=== PATIENT | female | born 1935 ===

== ENCOUNTER 2016-12-24 08:34 | Observation (INO) | payer OTHER ==
[2016-12-24 08:38] VITALS: BMI 25.5
--- NOTE | 2016-12-24 09:18 | ED PDOC ---
Syncope/Near Syncope/Dizziness Time Seen by Provider: 12/24/16 09:11 Chief Complaint (Nursing): Dizziness/Lightheaded History Per: Patient Onset/Duration Of Symptoms: Days (3) Current Symptoms Are (Timing): Still Present Activity At Onset Of Symptoms: Change In Head Position Associated Symptoms Preceding Syncopal Episode: Vertigo, Vertigo Worse With Change In Head Position Seizure Or Post-ictal Symptoms: None Possible Causative Factor(s): Vertigo Fall Associated With With Symptoms: No Severity: Mild Pain Scale Rating Of: 0 Additional Complaint(s): Dizziness x 3 days. Worse when moving head. Denies chest pain, palpitations or headache. No LOC. No focal weakness or parsthesias. Past Medical History Vital Signs: Last Vital Signs Temp 98.5 F 12/24/16 08:37 Pulse 60 12/24/16 08:37 Resp 18 12/24/16 08:37 BP 142/77 12/24/16 08:37 Pulse Ox 99 12/24/16 08:37 - Medical History PMH: Diabetes, HTN, Hypercholesterolemia - Family History Family History: States: Unknown Family Hx - Allergies Allergies/Adverse Reactions: Allergies Allergy/AdvReac Type Severity Reaction Status Date / Time No Known Allergies Allergy Verified 12/24/16 08:51 Review of Systems ROS Statement: Except As Marked, All Systems Reviewed And Found Negative Cardiovascular: Negative for: Chest Pain, Palpitations Neurological: Positive for: Dizziness. Negative for: Headache Physical Exam - Reviewed Nursing Documentation Reviewed: Yes Vital Signs Reviewed: Yes - Physical Exam Appears: Positive for: Non-toxic, No Acute Distress Head Exam: Positive for: ATRAUMATIC, NORMAL INSPECTION, NORMOCEPHALIC Skin: Positive for: Normal Color, Warm, DRY Eye Exam: Positive for: EOMI, Normal appearance, PERRL ENT: Positive for: Normal ENT Inspection Neck: Positive for: Normal, Painless ROM Cardiovascular/Chest: Positive for: Regular Rate, Rhythm Respiratory: Positive for: CNT, Normal Breath Sounds Gastrointestinal/Abdominal: Positive for: Normal Exam, Bowel Sounds, Soft Back: Positive for: Normal Inspection Extremity: Positive for: Normal ROM Neurologic/Psych: Positive for: Alert, Oriented - Laboratory Results Result Diagrams: 12/24/16 09:40 12/24/16 09:40 - ECG O2 Sat by Pulse Oximetry: 99 Disposition - Clinical Impression Clinical Impression: Near syncope - Patient ED Disposition Is Patient to be Admitted: Yes - Disposition Disposition Time: 13:37 Condition: FAIR - Pt Status Changed To: Hospital Disposition Of: Observation - POA Present On Arrival: None
[2016-12-24 09:50] LABS: BASO # 0.1 K/uL (0.0-0.2); EOS # 0.1 K/uL (0.0-0.7); EOS % 2.2 % (0.0-4.0); HEMOGLOBIN 12.6 g/dL (12.0-16.0); LYMPH # 1.8 K/uL (1.0-4.3); MEAN CELL VOLUME 95.2 fl (81.0-99.0); MEAN CORPUSCULAR HEMOGLOBIN 31.2 pg (27.0-31.0); MEAN CORPUSCULAR HGB CONC 32.8 g/dL (33.0-37.0); MEAN PLATELET VOLUME 9.8 fl (7.2-11.7); MONO # 0.4 K/uL (0.0-0.8); MONO % 6.7 % (0.0-10.0); NEUT # 3.8 K/uL (1.8-7.0); NEUT % 61.1 % (50.0-75.0); RBC 4.03 Mil/uL (3.80-5.20); RED CELL DISTRIBUTION WIDTH 13.3 % (11.5-14.5); WHITE BLOOD COUNT 6.2 K/uL (4.8-10.8)
[2016-12-24 10:18] LABS: ALB/GLOB RATIO 1.3 (1.0-2.1); ALBUMIN 4.1 g/dL (3.5-5.0); ALT/SGPT 27 U/L (9-52); AST/SGOT 27 U/L (14-36); BLOOD UREA NITROGEN 19 mg/dl (7-17); CALCIUM 9.7 mg/dL (8.4-10.2); GFR AFRICAN-AMERICAN > 60; GFR NON-AFRICAN AMERICAN > 60
--- NOTE | 2016-12-24 11:25 | CARD ---
APPROVED REPORT EKG Measurement Heart [id number] <Conclusion> Sinus bradycardia with marked sinus arrhythmia Otherwise normal ECG
--- NOTE | 2016-12-24 12:49 | CT ---
PROCEDURE: CT HEAD WITHOUT CONTRAST. HISTORY: r/o bleed COMPARISON: 12/22/2013. TECHNIQUE: Axial computed tomography images were obtained through the head/brain without intravenous contrast. Radiation dose: Total exam DLP = 791.88 mGy-cm. This CT exam was performed using one or more of the following dose reduction techniques: Automated exposure control, adjustment of the mA and/or kV according to patient size, and/or use of iterative reconstruction technique. FINDINGS: HEMORRHAGE: No intracranial hemorrhage. BRAIN: Exit there is an old infarction in the left very frontal white matter. There is cystic encephalomalacia in the left high parietal lobe. There is no mass, mass effect or abnormal extra-axial fluid collection. VENTRICLES: There is mild age-related global parenchymal volume loss and proportionate enlargement of the ventricles and cortical sulci. CALVARIUM: The skull base and calvarium are normal. PARANASAL SINUSES: Predominantly clear. MASTOID AIR CELLS: Predominantly clear. OTHER FINDINGS: None. IMPRESSION: No acute intracranial abnormality. 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 Cystic encephalomalacia in the left high parietal lobe.
--- NOTE | 2016-12-24 15:23 | CP.PCM.HP ---
History of Present Illness - History of Present Illness History of Present Illness: Patient seen and examined with attending. 81F with onset of intermittent "dizziness" characterized by "the room spinning" for 3 days. Worse in the evening, associated with reading/writing, occurs when lying flat in bed, but denies presence when changing position from sitting to standing or while walking. In addition, no association with focal deficits, nausea, SOB, diaphoresis, diarrhea, urinary symptoms, recent illness, change in medications, recent antibiotic use. She does report sensation of ear being plugged for 2 yrs PMD: Dr Hermelindo Voss PMH: CVA, HTN, HLD, DM PSH: Lt CEA, Appendectomy ALL: NKDA [place]: See Med Rec Present on Admission - Present on Admission Any Indicators Present on Admission: No Review of Systems - Review of Systems All systems: reviewed and no additional remarkable complaints except - EENT Eyes: Diplopia Ears: Decreased Hearing (LEFT, chronic x2yrs), Dizziness - Cardiovascular Cardiovascular: absent: Chest Pain, Leg Edema, Palpitations - Respiratory Respiratory: absent: Dyspnea Past Patient History - Infectious Disease Hx of Infectious Diseases: None - Past Social History Smoking Status: Unknown If Ever Smoked - CARDIAC Hx Cardiac Disorders: Yes (HTN) - NEUROLOGICAL Hx Dizziness: Yes - ENDOCRINE/METABOLIC Hx Diabetes Mellitus Type 2: Yes - PSYCHIATRIC Hx Substance Use: No Meds Allergies/Adverse Reactions: Allergies Allergy/AdvReac Type Severity Reaction Status Date / Time No Known Allergies Allergy Verified 12/24/16 08:51 Physical Exam - Constitutional Appears: Well, Non-toxic, No Acute Distress - Head Exam Head Exam: ATRAUMATIC, NORMAL INSPECTION - Eye Exam Eye Exam: EOMI, PERRL. absent: Nystagmus - ENT Exam ENT Exam: Mucous Membranes Moist, Normal Exam - Cardiovascular Exam Cardiovascular Exam: Bradycardia. absent: JVD - GI/Abdominal Exam GI & Abdominal Exam: Normal Bowel Sounds, Soft. absent: Tenderness - Extremities Exam Extremities exam: Positive for: full ROM. Negative for: pedal edema, tenderness - Neurological Exam Neurological exam: Alert, CN II-XII Intact, Oriented x3 - Psychiatric Exam Psychiatric exam: Normal Affect, Normal Mood - Skin Skin Exam: Normal Color, Warm Results - Vital Signs Recent Vital Signs: Last Vital Signs Temp 36.5 C 12/24/16 14:46 Pulse 51 L 12/24/16 14:46 Resp 20 12/24/16 14:46 BP 177/60 H 12/24/16 14:46 Pulse Ox 100 12/24/16 14:46 - Labs Result Diagrams: 12/24/16 09:40 12/24/16 09:40 Assessment & Plan (1) Dizzinesses Assessment and Plan: Symptoms most c/w vertigo, orthostatics positive with a change SBP from sitting to standing of 20mmHg, however found to be bradycardic with sinus arrhythmia as well. She is not on a beta-joana, but mild elevation in BUN c/w possible volume depletion. Arrhythmia vs. volume depletion vs. less likely neurological in origin. CT head no ICH, old LEFT frontal infarct, cystic encephalomalacia LEFT parietal. - Admit to Telemetry - Cardiac Consult (Dr Sotelo) - Echo, Carotid Duplex - Meclizine Status: Acute (2) DVT prophylaxis Assessment and Plan: Lovenox 40mg, SC, Daily Status: Acute (3) Diabetes Assessment and Plan: Stable. - c/w medications - Accu-check - Mod CHO - Hypoglycemic Bundle Status: Chronic (4) Hypertension Assessment and Plan: Stable, c/w medications Status: Chronic (5) Hyperlipidemia Assessment and Plan: Stable, c/w medications Status: Chronic
[2016-12-24] MEDS ORDERED: Dextrose 50% SYRINGE Inj (50 ml) IV PRN (15:42)
[2016-12-24] MEDS ORDERED: Glucagon Recombinant 1 mg Inj IM PRN (15:42)
[2016-12-24] MEDS: Pantoprazole 40 mg EC Tab PO SCH (15:45)
[2016-12-24] MEDS: Enoxaparin 40 mg Syringe SC SCH (15:45)
--- NOTE | 2016-12-24 17:33 | US ---
PROCEDURE: Carotid vertebral duplex sonography HISTORY: dizziness COMPARISON: None available. TECHNIQUE: Grayscale, color Doppler and spectral Doppler assessment of the carotid system bilaterally. This includes common carotid, internal carotid arteries Vertebral artery assessment with respect to direction of flow (antegrade or retrograde) FINDINGS: RIGHT carotid system: Assessment of plaque: Heterogeneous plaque formation. Peak systolic ICA velocity: 74 cm/sec End-diastolic velocity: 21 cm/sec ICA/CCA ratio: 1.1 Vertebral artery flow: Antegrade LEFT carotid system: Assessment of plaque: Heterogeneous plaque formation. Peak systolic ICA velocity: 122.1 cm/sec End-diastolic velocity: 28 cm/sec ICA/CCA ratio: 1.5 Vertebral artery flow: Antegrade IMPRESSION: Right ICA degree of stenosis: Less than 50% Left ICA degree of stenosis: Less than 50% Reference Internal Carotid Artery (ICA) Peak Systolic Velocity (PSV) for above: 1. Less than 50% stenosis less than 125 cm/s peak systolic velocity 2. 50-69% stenosis 125-230cm/s peak systolic velocity 3. Greater than 70% but less than near occlusion greater than 230 cm/s peak systolic velocity
--- NOTE | 2016-12-24 20:44 | CP.PCM.CON ---
History of Present Illness - History of Present Illness History of Present Illness: I was asked to see patient by Dr. Shah. Patient is a 81 year old female with PMH HTN, hypercholesterolemia who presents with dizziness. The patient had a sensation of head spinning and "floating". Symptoms have been intermittentby became worse the day of admission. The patient has felt a fullness in her ears and associated headache, She denies chest pain or palpitations. Review of Systems - Constitutional Constitutional: absent: As Per HPI, Anorexia, Chills, Daytime Sleepiness, Excessive Sweating, Fatigue, Fever, Frequent Falls, Headache, Increased Appetite , Lethargy, Malaise, Night Sweats, Snoring, Sleep Apnea, Weight Gain, Weight Loss, Weakness, Other - EENT Eyes: absent: As Per HPI, Blind Spots, Blurred Vision, Change in Vision, Decreased Night Vision, Diplopia, Discharge, Dry Eye, Exophthalmos, Floaters, Irritation, Itchy Eyes, Loss of Peripheral Vision, Pain, Photophobia, Requires Corrective Lenses, Sees Flashes, Spots in Vision, Tunnel Vision, Other Visual Disturbances, Loss of Vision, Other Ears: absent: As Per HPI, Decreased Hearing, Ear Discharge, Ear Pain, Tinnitus, Abnormal Hearing, Disequilibrium, Dizziness, Other Nose/Mouth/Throat: absent: As Per HPI, Epistaxis, Nasal Congestion, Nasal Discharge, Nasal Obstruction, Nasal Trauma, Nose Pain, Post Nasal Drip, Sinus Pain, Sinus Pressure, Bleeding Gums, Change in Voice, Dental Pain, Dry Mouth, Dysphagia, Halitosis, Hoarsness, Lip Swelling, Mouth Lesions, Mouth Pain, Odynophagia, Sore Throat, Throat Swelling, Tongue Swelling, Facial Pain, Neck Pain, Neck Mass, Other - Breasts Breasts: absent: As Per HPI, Change in Shape, Mass, Pain, Nipple Discharge, Nipple Inversion, Skin Changes, Swelling, Other - Cardiovascular Cardiovascular: absent: As Per HPI, Acrocyanosis, Chest Pain, Chest Pain at Rest , Chest Pain with Activity, Claudication, Diaphoresis, Dyspnea, Dyspnea on Exertion, Edema, Irregular Heart Rhythm, Pain Radiating to Arm/Neck/Jaw, Leg Edema, Leg Ulcers, Lightheadedness, Orthopnea, Palpitations, Paroxysmal Nocturnal Dyspnea, Pedal Edema, Radiating Pain, Rapid Heart Rate, Slow Heart Rate, Syncope, Other - Respiratory Respiratory: absent: As Per HPI, Cough, Dyspnea, Hemoptysis, Dyspnea on Exertion , Wheezing, Snoring, Stridor, Pain on Inspiration, Chest Congestion, Excessive Mucous Production, Change in Mucous Color, Pain with Coughing, Other - Gastrointestinal Gastrointestinal: absent: As Per HPI, Abdominal Pain, Belching, Bloating, Change in Bowel Habits, Change in Stool Character, Coffee Ground Emesis, Constipation, Cramping, Diarrhea, Dyspepsia, Dysphagia, Early Satiety, Excessive Flatus, Fecal Incontinence, Heartburn, Hematemesis, Hematochezia, Loose Stools, Melena, Nausea, Odynophagia, Temesmus, Vomiting, Other - Genitourinary Genitourinary: absent: As Per HPI, Change in Urinary Stream, Difficulty Urinating, Dysuria, Flank Pain, Hematuria, Pyuria, Nocturia, Urinary Incontinence, Urinary Frequency, Urinary Hesitance, Urinary Urgency, Voiding Freq/Small Amts, Freq UTI, Hx Renal/Bladder Calculi, Hx /Renal Surgery, Bladder Distension, Other - Musculoskeletal Musculoskeletal: absent: As Per HPI, Abnormal Gait, Arthralgias, Atrophy, Back Pain, Deformity, Joint Swelling, Limited Range of Motion, Loss of Height, Muscle Cramps, Muscle Weakness, Myalgias, Neck Pain, Numbness, Radiating Pain into Limb, Stiffness, Tingling, Other - Integumentary Integumentary: absent: As Per HPI, Acne, Alopecia, Bleeding Lesions, Change in Hair, Change in Nails, Change in Pigmentation, Changing Lesions, Dry Skin, Erythema, Furuncle, Hirsutism, Lesions, New Lesions, Non-Healing Lesions, Photosensitivity, Pruritus, Rash, Skin Pain, Skin Ulcer, Sores, Striae, Swelling , Unusual Bruising, Wounds, Jaundice, Other - Neurological Neurological: Dizziness, Lack of Coordination - Psychiatric Psychiatric: absent: As Per HPI, Abnormal Sleep Pattern, Anhedonia, Anxiety, Auditory Hallucinations, Behavioral Changes, Change in Appetite, Change in Libido, Confusion, Depression, Difficulty Concentrating, Hallucinations, Homicidal Ideation, Hopelessness, Irritability, Memory Loss, Mood Swings, Panic Attacks, Paranoia, Suicidal Ideation, Visual Hallucinations, Tactile Hallucinations, Other - Endocrine Endocrine: absent: As Per HPI, Change in Body Appearance, Change in Libido, Cold Intolorance, Deepening of Voice, Excessive Sweating, Fatigue, Flushing, Heat Intolorance, Increase in Ring/Shoe/Hat Size, Palpitations, Polydipsia, Polyphagia, Polyuria, Other - Hematologic/Lymphatic Hematologic: absent: As Per HPI, Easy Bleeding, Easy Bruising, Lymphadenopathy, Other Past Patient History - Infectious Disease Hx of Infectious Diseases: None - Past Medical History & Family History Past Medical History?: Yes - Past Social History Smoking Status: Unknown If Ever Smoked - CARDIAC Hx Cardiac Disorders: Yes (HTN) - PULMONARY Hx Respiratory Disorders: No - NEUROLOGICAL Hx Dizziness: Yes - HEENT Hx HEENT Problems: No - ENDOCRINE/METABOLIC Hx Diabetes Mellitus Type 2: Yes - HEMATOLOGICAL/ONCOLOGICAL Hx Blood Disorders: No - INTEGUMENTARY Hx Dermatological Problems: No - MUSCULOSKELETAL/RHEUMATOLOGICAL Hx Falls: No - GASTROINTESTINAL Hx Gastrointestinal Disorders: No - GENITOURINARY/GYNECOLOGICAL Hx Genitourinary Disorders: No - PSYCHIATRIC Hx Substance Use: No - SURGICAL HISTORY Hx Appendectomy: Yes Other/Comment: left neck embolectomy and uterus cyst removal - ANESTHESIA Hx Anesthesia: Yes Hx Anesthesia Reactions: No Hx Malignant Hyperthermia: No Has any member of the family had a problem w/ anesthesia?: No Meds Allergies/Adverse Reactions: Allergies Allergy/AdvReac Type Severity Reaction Status Date / Time No Known Allergies Allergy Verified 12/24/16 08:51 - Medications Medications: Current Medications Aspirin (Aspirin Chewable) 81 mg PO DAILY [facility] Last Admin: 12/24/16 15:45 Dose: 81 mg Atorvastatin Calcium (Lipitor) 20 mg PO DAILY [facility] Last Admin: 12/24/16 15:45 Dose: 20 mg Dextrose (Dextrose 50% Inj) 0 ml IV STAT PRN; Protocol PRN Reason: Hyglycemia Protocol Dextrose (Glutose 15) 0 gm PO ONCE PRN; Protocol PRN Reason: Hypoglycemia Protocol Enoxaparin Sodium (Lovenox) 40 mg SC DAILY [facility] PRN Reason: Protocol Last Admin: 12/24/16 15:45 Dose: 40 mg Glucagon (Glucagen Diagnostic Kit) 0 mg IM STAT PRN; Protocol PRN Reason: Hypoglycemia Protocol Meclizine HCl (Antivert) 25 mg PO BID [facility] Last Admin: 12/24/16 16:38 Dose: 25 mg Metformin HCl (Glucophage) 500 mg PO BIDWM [facility] Last Admin: 12/24/16 16:40 Dose: 500 mg Pantoprazole Sodium (Protonix Ec Tab) 40 mg PO DAILY [facility] Last Admin: 12/24/16 15:45 Dose: 40 mg Prednisone (Prednisone Tab) 20 mg PO DAILY [facility] Valsartan (Diovan) 320 mg PO DAILY [facility] Last Admin: 12/24/16 15:45 Dose: 320 mg Physical Exam - Constitutional Appears: Non-toxic - Head Exam Head Exam: NORMAL INSPECTION - Eye Exam Eye Exam: Normal appearance - ENT Exam ENT Exam: Mucous Membranes Moist - Neck Exam Neck exam: Positive for: Full Rom - Respiratory Exam Respiratory Exam: NORMAL BREATHING PATTERN - Cardiovascular Exam Cardiovascular Exam: REGULAR RHYTHM - GI/Abdominal Exam GI & Abdominal Exam: Normal Bowel Sounds - Rectal Exam Rectal Exam: Deferred - Extremities Exam Extremities exam: Positive for: pedal edema - Back Exam Back exam: NORMAL INSPECTION - Neurological Exam Neurological exam: Alert, Oriented x3 - Psychiatric Exam Psychiatric exam: Normal Affect - Skin Skin Exam: Normal Color Results - Vital Signs Recent Vital Signs: Last Vital Signs Temp 98.3 F 12/24/16 19:39 Pulse 53 L 12/24/16 19:39 Resp 20 12/24/16 19:39 BP 151/75 H 12/24/16 19:39 Pulse Ox 98 12/24/16 19:39 - Labs Result Diagrams: 12/24/16 09:40 12/24/16 09:40 Labs: Laboratory Results - last 24 hr 12/24/16 12/24/16 16:06 17:00 POC Glucose (mg/dL) 98 TSH 3rd Generation 1.72 - EKG Data EKG Interpreted by: Myself EKG shows normal: Sinus rhythm Assessment & Plan (1) Near syncope Assessment and Plan: monitor on telemetry. EKG reveals evidence of sinus arrhythmia. Recommend echocardiogram. neuro eval. Status: Acute (2) Hyperlipidemia Assessment and Plan: statin therapy Status: Chronic (3) Hypertension Assessment and Plan: monitor blood pressure. Status: Chronic
[2016-12-25 05:10] VITALS: RESP 18
[2016-12-25 07:40] LABS: LDL CHOLESTEROL 75 mg/dL (0-129)
[2016-12-25 07:42] LABS: HDL CHOLESTEROL 66 MG/DL (30-70)
[2016-12-25 08:30] VITALS: TEMP 98.3
[2016-12-25] MEDS: Pantoprazole 40 mg EC Tab PO SCH (09:07)
[2016-12-25] MEDS: Enoxaparin 40 mg Syringe SC SCH (09:09)
--- NOTE | 2016-12-25 10:15 | CP.PCM.DIS ---
Provider - Provider Date of Admission: 12/24/16 13:37 Attending physician: Dheeraj Shah MD Time Spent in preparation of Discharge (in minutes): 45 Diagnosis - Discharge Diagnosis (1) Dizzinesses Status: Acute Comment: Cleared by cardiology for discharge, Neurology recommend outpatient follow-up. Most c/w vertigo. (2) Diabetes Status: Chronic Comment: c/w Home regimen (3) Hypertension Status: Chronic Comment: Controlled, c/w home medication. (4) Hyperlipidemia Status: Chronic Comment: Controlled, c/w home medication Hospital Course - Lab Results Lab Results: Most Recent Lab Values WBC 6.2 K/uL (4.8-10.8) 12/24/16 09:40 RBC 4.03 Mil/uL (3.80-5.20) 12/24/16 09:40 Hgb 12.6 g/dL (12.0-16.0) 12/24/16 09:40 Hct 38.4 % (34.0-47.0) 12/24/16 09:40 MCV 95.2 fl (81.0-99.0) 12/24/16 09:40 MCH 31.2 pg (27.0-31.0) H 12/24/16 09:40 MCHC 32.8 g/dL (33.0-37.0) L 12/24/16 09:40 RDW 13.3 % (11.5-14.5) 12/24/16 09:40 Plt Count 183 K/uL (130-400) 12/24/16 09:40 MPV 9.8 fl (7.2-11.7) 12/24/16 09:40 Neut % (Auto) 61.1 % (50.0-75.0) 12/24/16 09:40 Lymph % (Auto) 29.0 % (20.0-40.0) 12/24/16 09:40 Kidder % (Auto) 6.7 % (0.0-10.0) 12/24/16 09:40 Eos % (Auto) 2.2 % (0.0-4.0) 12/24/16 09:40 Baso % (Auto) 1.0 % (0.0-2.0) 12/24/16 09:40 Neut # 3.8 K/uL (1.8-7.0) 12/24/16 09:40 Lymph # 1.8 K/uL (1.0-4.3) 12/24/16 09:40 Kidder # 0.4 K/uL (0.0-0.8) 12/24/16 09:40 Eos # 0.1 K/uL (0.0-0.7) 12/24/16 09:40 Baso # 0.1 K/uL (0.0-0.2) 12/24/16 09:40 Sodium 142 mmol/l (132-148) 12/24/16 09:40 Potassium 4.2 MMOL/L (3.6-5.0) 12/24/16 09:40 Chloride 106 mmol/L (98-107) 12/24/16 09:40 Carbon Dioxide 25 mmol/L (22-30) 12/24/16 09:40 Anion Gap 15 (10-20) 12/24/16 09:40 BUN 19 mg/dl (7-17) H 12/24/16 09:40 Creatinine 0.9 mg/dL (0.7-1.2) 12/24/16 09:40 Est GFR ( Amer) > 60 12/24/16 09:40 Est GFR (Non-Af Amer) > 60 12/24/16 09:40 POC Glucose (mg/dL) 100 mg/dL (65-110) 12/25/16 05:40 Random Glucose 106 mg/dL (65-105) H 12/24/16 09:40 Hemoglobin A1c 6.9 % (4.2-6.5) H 12/24/16 17:23 Calcium 9.7 mg/dL (8.4-10.2) 12/24/16 09:40 Total Bilirubin 0.6 mg/dl (0.2-1.3) 12/24/16 09:40 AST 27 U/L (14-36) 12/24/16 09:40 ALT 27 U/L (9-52) 12/24/16 09:40 Alkaline Phosphatase 41 U/L (38-126) 12/24/16 09:40 Total Protein 7.3 G/DL (6.3-8.2) 12/24/16 09:40 Albumin 4.1 g/dL (3.5-5.0) 12/24/16 09:40 Globulin 3.2 gm/dL (2.2-3.9) 12/24/16 09:40 Albumin/Globulin Ratio 1.3 (1.0-2.1) 12/24/16 09:40 Triglycerides 71 mg/DL (0-149) 12/25/16 05:05 Cholesterol 175 mg/dL (0-199) 12/25/16 05:05 LDL Cholesterol Direct 75 mg/dL (0-129) 12/25/16 05:05 HDL Cholesterol 66 MG/DL (30-70) 12/25/16 05:05 TSH 3rd Generation 1.72 mIU/ML (0.46-4.68) 12/24/16 17:00 - Hospital Course Hospital Course: Patient seen and examined at bedside with attending. 81F admitted for near syncope, CT head negative and no focal deficits. Carotid duplex without acute disease. Cardiology agree for discharge to home and close follow up. Evaluation by cardiology and neurology. Patient is stable for discharge and close follow up with PMD. Carotid Duplex: b/l <50% stenosis Echocardiogram: Nml LV systolic function, MR, aortic sclerosis Discharge Exam - Head Exam Head Exam: ATRAUMATIC, NORMAL INSPECTION - Eye Exam Eye Exam: EOMI, PERRL - ENT Exam ENT Exam: Mucous Membranes Moist, Normal Exam - Respiratory Exam Respiratory Exam: Clear to PA & Lateral, NORMAL BREATHING PATTERN. absent: Rales, Rhonchi, Wheezes - Cardiovascular Exam Cardiovascular Exam: REGULAR RHYTHM. absent: JVD - GI/Abdominal Exam GI & Abdominal Exam: Normal Bowel Sounds, Soft. absent: Tenderness - Extremities Exam Extremities exam: normal capillary refill, pedal pulses present - Neurological Exam Neurological exam: Alert, Oriented x3 - Psychiatric Exam Psychiatric exam: Normal Affect, Normal Mood - Skin Skin Exam: Dry, Intact Discharge Plan - Follow Up Plan Condition: FAIR Disposition: HOME/ ROUTINE Patient education suggested?: Yes Instructions: Syncope (DC), Vertigo (DC) Referrals: Jaron Voss MD [Family Provider] - 1 Week
[2016-12-25 12:54] VITALS: BP 135/67; PULSE 65; O2SAT 97
--- NOTE | 2016-12-25 12:56 | CARD ---
APPROVED REPORT EXAM: Two-dimensional and M-mode echocardiogram with Doppler and color Doppler. Other Information Quality : GoodRhythm : NSR INDICATION CVA/TIA Hypertension/HCVD 2D DIMENSIONS IVSd1.17 (0.7-1.1cm)LVDd3.81 (3.9-5.9cm) LVOT Diameter1.82 (1.8-2.4cm)PWd0.72 (0.7-1.1cm) IVSs1.22 (0.8-1.2cm)LVDs2.32 (2.5-4.0cm) FS (%) 39.0 %PWs1.07 (0.8-1.2cm) M-Mode DIMENSIONS Left Atrium (MM)3.71 (2.5-4.0cm)IVSd0.88 (0.7-1.1cm) Aortic Root2.68 (2.2-3.7cm)LVDd5.35 (4.0-5.6cm) Aortic Cusp Exc.1.76 (1.5-2.0cm)PWd1.06 (0.7-1.1cm) IVSs1.21 cmFS (%) 51 % LVDs2.65 (2.0-3.8cm)PWs1.06 cm Mitral Valve MV E Wrcfloyv88.5cm/sMV DECEL [id number] A Hgxvjuir95.6cm/s MV [id number]/A ratio1.0MVA (PHT)3.10cm2 TDI Lateral E' Peak V7.99cm/sMedial E' Peak V6.60cm/sE/Lateral E'9.6 E/Medial E'11.6 Tricuspid Valve TR Peak Daepnixv750ri/sRAP [id number] Peak Gr.20mmHg [id number] LEFT VENTRICLE The left ventricle is normal size. There is normal left ventricular wall thickness. The left ventricular function is normal. The left ventricular ejection fraction is 60% There is normal LV segmental wall motion. The left ventricular diastolic function is normal. No left ventricle thrombus noted on this study. There is no ventricular septal defect visualized. There is no left ventricular aneurysm. RIGHT VENTRICLE The right ventricle is normal size. There is normal right ventricular wall thickness. The right ventricular systolic function is normal. ATRIA The left atrium size is normal. The right atrium size is normal. The interatrial septum is intact with no evidence for an atrial septal defect. AORTIC VALVE The aortic valve is mildly sclerotic. No aortic regurgitation is present. There is no aortic valvular stenosis. There is no aortic valvular vegetation. MITRAL VALVE The mitral valve is normal in structure and function. There is no evidence of mitral valve prolapse. There is no mitral valve stenosis. Mitral regurgitation is trace. TRICUSPID VALVE The tricuspid valve is normal in structure and function. There is no tricuspid valve regurgitation noted. There is no tricuspid valve prolapse or vegetation. There is no tricuspid valve stenosis. PULMONIC VALVE The pulmonary valve is normal in structure and function. There is no pulmonic valvular regurgitation. There is no pulmonic valvular stenosis. GREAT VESSELS The aortic root is normal in size. The ascending aorta is normal in size. The IVC is normal in size and collapses >50% with inspiration. PERICARDIAL EFFUSION The pericardium appears normal. There is no pleural effusion. <Conclusion> Normal LV systolic function Aortic Valve Sclerosis Mild Mitral Regurgitation
== END 2016-12-25 14:30 | disposition home or self-care (01) ==
LOC: H.ER 08:34 → H.ERHOLD 13:37 → H.TEL 14:30
PROVIDERS: ADMIT Family Medicine; ATTEND Family Medicine
DX: R42 Dizziness and giddiness (principal); I10 Essential (primary) hypertension; E78.00 Pure hypercholesterolemia, unspecified; E78.5 Hyperlipidemia, unspecified; Z86.73 Personal history of transient ischemic attack (TIA), and cerebral infarction without residual deficits; E11.9 Type 2 diabetes mellitus without complications
CPT/HCPCS: 36415; 70450; 80053; 80061; 82948; 83036; 84443; 85025; 93005; 93306; 93880; 96372; 99285; G0378; J1650